=== PATIENT | male | born 1960 | race Caucasian/White ===

== ENCOUNTER 2017-12-05 18:56 | Emergency (ER) | payer MEDICARE ==
[~2017-12-05] VITALS: Ht 175.3 cm; Wt 88.6 kg
[2017-12-05 20:09] VITALS: BP 149/83
== END 2017-12-05 20:11 | disposition home or self-care (01) ==
LOC: EME 18:56
PROC: 0HQNXZZ Repair Left Foot Skin, External Approach (ICD-10-PCS; principal; 2017-12-05)
DX: S91.312A Laceration without foreign body, left foot, initial encounter (principal); W27.0XXA Contact with workbench tool, initial encounter; W20.8XXA Other cause of strike by thrown, projected or falling object, initial encounter
CPT/HCPCS: 99281; 99284